=== PATIENT | female | born 1955 | race Caucasian/White ===

== ENCOUNTER 2024-01-13 17:28 | Emergency (ER) | payer MEDICARE ==
[~2024-01-13] VITALS: Ht 165.1 cm; Wt 85.8 kg
[2024-01-13 18:58] VITALS: BP 149/86; PULSE 90; RESP 16; TEMP 97.8; O2SAT 98
== END 2024-01-13 19:03 | disposition home or self-care (01) ==
LOC: ER 17:28
DX: M70.71 Other bursitis of hip, right hip (principal); Z88.0 Allergy status to penicillin; Z88.2 Allergy status to sulfonamides; Y93.89 Activity, other specified
CPT/HCPCS: 73502; 99283

== ENCOUNTER 2024-02-04 09:42 | Outpatient (CLI) | payer MEDICARE, OTHER | END 2024-02-04 23:59 | disposition home or self-care (01) | LOC: RAD 09:42 | PROVIDERS: ATTEND Registered Nurse | DX: K76.0 Fatty (change of) liver, not elsewhere classified (principal); R94.5 Abnormal results of liver function studies | CPT/HCPCS: 76700 ==